=== PATIENT | female | born 1935 | race Hispanic/Latino ===

== ENCOUNTER 2017-04-04 10:43 | Day surgery (SDC) | payer MEDICARE, BC ==
[2016-10-22 13:50] VITALS: PULSE 73
[2017-03-17 12:31] VITALS: BMI 26.6
[2017-04-04] MEDS ORDERED: Sodium Chloride 0.9% 1,000 ML IV ONE (13:30)
[2017-04-04] MEDS ORDERED: Propofol 10 mg/ml Inj (20 ML) ONE (13:42)
[2017-04-04] MEDS ORDERED: HYDROmorphone 0.5 mg/0.5 ml ISec IVP PRN (14:32)
--- NOTE | 2017-04-04 14:52 | PCM.SURG1 ---
Surgeon's Initial Post Op Note - Surgeon's Notes Surgeon: Huong Araiza MD Instructor Looping: none Type of Anesthesia: General LMA Pre-Operative Diagnosis: post menopausal bleeding Operative Findings: samll uteurs sounded, no adnexal msases, no intracavity masses, thikcneed endometrium, urien outpult 50 cc clear yello wurine, bilatelr ostia visualized Post-Operative Diagnosis: same as above Operation Performed: Operative hysteroscopy, fraction dilation and curretage Specimen/Specimens Removed: endocervical currettage, endometrial currettage Estimated Blood Loss: EBL {In ML}: 5 Blood Products Given: N/A Drains Used: No Drains Post-Op Condition: Good Date of Surgery/Procedure: 04/04/17 Time of Surgery/Procedure: 13:00
[2017-04-04 16:06] VITALS: RESP 18
[2017-04-04 16:46] VITALS: BP 155/78; PULSE 72; TEMP 97.8; O2SAT 98
--- NOTE | 2017-04-05 03:17 | OP ---
PROCEDURE DATE: 04/04/2017 SURGEON: Huong Araiza MD. DETENTION SERGEANT: None. TYPE OF ANESTHESIA: General LMA. PREOPERATIVE DIAGNOSIS: Postmenopausal bleeding. POSTOPERATIVE DIAGNOSIS: Postmenopausal bleeding. OPERATIVE FINDINGS: Small uterus, sounded to 9 cm. No adnexal masses, no intracavity masses. Thickened endometrium. Bilateral ostia are visualized. URINE OUTPUT: 50 mL of clear yellow urine. OPERATION PERFORMED: Operative hysteroscopy and dilation and curettage. SPECIMEN: Endocervical curettings and endometrial curettings. ESTIMATED BLOOD LOSS: 5 mL. BLOOD PRODUCTS: None. COMPLICATIONS: None. INDICATIONS: The patient is a 81-year-old female with postmenopausal bleeding, with history of atrial fibrillation on anticoagulation, which was subsequently medically cleared. Medication was stopped 5 days prior to surgery. Risks, benefits, alternatives and indications of surgery not limited to infection, bleeding, injury or perforation were discussed with the patient. Patient agreed and consented, witnessed. The patient was taken to the operating room where she was given general anesthesia. Once found to be adequate, she was positioned on the operating table in dorsal supine position with legs supported using stirrups. The patient was then prepped and draped in the usual sterile fashion. A time-out was performed to confirm correct patient, correct procedure. A bimanual exam was performed with the above-mentioned findings. A red rubber catheter was inserted into the urethra to drain the Ruggiero. Following this, a single tooth tenaculum was placed in the anterior portion of the vagina and the cervix was adequately visualized. Single-toothed tenaculum was placed in the anterior lip of the cervix and endocervical curettings were obtained with a Kevorkian curette and sent to pathology on Tel. The uterus was then sounded to 9 cm. Then the uterus was sequentially dilated to allow for introduction of the hysteroscope. Upon visualization, the bilateral endometria were visualized and a thickened white proliferative type tissue noted within the cavity. A gentle curettage was done. Specimen was then sent to pathology on a Tel. All instruments were removed including the single tooth tenaculum with good hemostasis noted. At the end of the procedure, all needle, sponge and instrument counts were noted and correct x2. The patient tolerated the procedure well and was transferred to the recovery room in stable condition. Huong Araiza MD [facility] # [id number]
== END 2017-04-04 16:45 | disposition home or self-care (01) ==
LOC: C.SDS 10:43
PROVIDERS: ATTEND Obstetrics & Gynecology
DX: N95.0 Postmenopausal bleeding (principal); I48.91 Unspecified atrial fibrillation; Z78.0 Asymptomatic menopausal state
CPT/HCPCS: 58558; 88305; J2405; J2704; J3010; J7040; J7120

== ENCOUNTER 2018-04-03 10:17 | Inpatient (IN) | payer MEDICARE, BC ==
[2017-06-24 17:17] VITALS: BMI 26.6
[2018-04-03] MEDS ORDERED: Propofol 10 mg/ml 1,000 MG/100 ML VIAL ONE (12:48)
[2018-04-03] MEDS ORDERED: Bupivacaine Liposomal Inj 20 ml INFIL ONE (12:49)
[2018-04-03] MEDS ORDERED: Propofol 10 mg/ml Inj (20 ML) ONE (12:50)
--- NOTE | 2018-04-03 12:51 | CP.PCM.HP ---
History of Present Illness - History of Present Illness History of Present Illness: 82F with right knee DJD failed conservative mgmt and elected for TKR. PMH: CAD s/p stents 1999, HTN, afib INR 1.21 04/03/2018 cardiology clearance on chart with recent stress test PSH: right ankle Present on Admission - Present on Admission Any Indicators Present on Admission: No Review of Systems - Review of Systems All systems: reviewed and no additional remarkable complaints except - Musculoskeletal Musculoskeletal: As Per HPI Past Patient History - Infectious Disease Hx of Infectious Diseases: None - Tetanus Immunizations Tetanus Immunization: Unknown - Past Medical History & Family History Past Medical History?: Yes Past Family History: Reviewed and not pertinent - Past Social History Smoking Status: Never Smoked - CARDIAC Hx Cardiac Disorders: Yes (CAD) Hx Cardia Arrhythmia: Yes (AFIB) Hx Circulatory Problems: Yes Hx Hypercholesterolemia: Yes Hx Hypertension: Yes Hx Pacemaker: No - PULMONARY Hx Respiratory Disorders: Yes Hx Pneumonia: Yes - NEUROLOGICAL Hx Neurological Disorder: Yes Hx Dizziness: Yes - HEENT Hx HEENT Problems: Yes Hx Cataracts: Yes - RENAL Hx Chronic Kidney Disease: No - ENDOCRINE/METABOLIC Hx Endocrine Disorders: No - HEMATOLOGICAL/ONCOLOGICAL Hx Blood Disorders: No - INTEGUMENTARY Hx Dermatological Problems: No - MUSCULOSKELETAL/RHEUMATOLOGICAL Hx Musculoskeletal Disorders: Yes Hx Arthritis: Yes Hx Fractures: Yes (right tibia 1987, right ankle 2002) Hx Osteoporosis: Yes Hx Unsteady Gait: Yes (uses a cane arthritis r knee) - GASTROINTESTINAL Hx Gastrointestinal Disorders: Yes - GENITOURINARY/GYNECOLOGICAL Hx Genitourinary Disorders: Yes (PMB) - PSYCHIATRIC Hx Psychophysiologic Disorder: Yes Hx Anxiety: Yes Hx Substance Use: No - SURGICAL HISTORY Hx Surgeries: Yes Hx Cardiac Catheterization: Yes (NOVEMBER 2012) Hx Coronary Stent: Yes (x1) Hx Dilation and Curettage: Yes Hx Open Reduction Internal Fixation: Yes (RIGHT TIBIA ANKLE) - ANESTHESIA Hx Anesthesia: Yes Hx Anesthesia Reactions: Yes Hx Malignant Hyperthermia: No Meds Allergies/Adverse Reactions: Allergies Allergy/AdvReac Type Severity Reaction Status Date / Time diphenhydramine Allergy Severe unknown Verified 03/23/18 10:08 [From Benadryl] nitroglycerin Allergy Severe ANAPHYLAXIS Verified 03/23/18 10:08 pcn Allergy Severe RASH Uncoded 03/23/18 10:08 chocolate candy AdvReac Severe HEADACHE Uncoded 03/23/18 10:08 Physical Exam - Constitutional Appears: Well, No Acute Distress - Head Exam Head Exam: ATRAUMATIC - Respiratory Exam Respiratory Exam: NORMAL BREATHING PATTERN - Expanded Lower Extremities Exam Right Knee exam: tenderness (severe valgus deformity, NVID, +DP/PT pulses, calves soft NT neg homans) - Neurological Exam Neurological exam: Alert, Oriented x3 - Psychiatric Exam Psychiatric exam: Normal Affect, Normal Mood - Skin Skin Exam: Dry, Intact, Normal Color, Warm Results - Vital Signs Recent Vital Signs: Last Vital Signs Temp 97.1 F L 04/03/18 10:34 Pulse 56 L 04/03/18 10:34 Resp 20 04/03/18 10:34 BP 149/101 H 04/03/18 10:34 Pulse Ox 96 04/03/18 10:34 - Labs Labs: Laboratory Results - last 24 hr 04/03/18 11:30 Blood Type O NEGATIVE Antibody Screen Negative Assessment & Plan (1) Primary osteoarthritis of right knee Assessment and Plan: risks/arvind/alt explained in detail, patient verbalized understanding and consented to surgery NPO patient surgery moved to due to high humidity levels at [place] operating room T&S for OR Status: Chronic (2) Acquired genu valgum of right knee Status: Chronic (3) Coronary artery disease Status: Chronic (4) Vitamin D deficiency Status: Chronic (5) Atrial fibrillation Status: Chronic (6) Hypertension Assessment and Plan: cont home meds Status: Chronic
[2018-04-03] MEDS ORDERED: Phenylephrine 10 mg/ml Inj ONE (12:53)
[2018-04-03] MEDS ORDERED: Rocuronium 10 mg/ml (5 ml) ONE (12:53)
[2018-04-03] MEDS ORDERED: Bacitracin 150,000 UNIT in Sodium Chloride 0.9% Irrig 3,000 ML IR SCH (13:00)
[2018-04-03] MEDS ORDERED: Sodium Chloride 0.9% 60 ML IV ONE (13:26)
[2018-04-03] MEDS ORDERED: Neostigmine Methylsulfate 3mg/3ml Syringe IV ONE ×2 (13:35→15:25)
[2018-04-03] MEDS ORDERED: Vancomycin 1 g Inj ONE ×2 (14:55→15:03)
[2018-04-03] MEDS ORDERED: Absorbable Gelatin Sponge Size 100 ONE (15:32)
[2018-04-03] MEDS ORDERED: Thrombin Topical 5,000 Int Units Spray Kit ONE (15:32)
[2018-04-03] MEDS ORDERED: Thrombin Topical 20,000 Intl Units Spray Kit TOP ONE (15:32)
[2018-04-03] MEDS ORDERED: HYDROmorphone 0.5 mg/0.5 ml ISec IVP PRN (16:01)
[2018-04-03] MEDS ORDERED: Bupivacaine 0.25% 20 ML INJ IJ ONE (17:06)
--- NOTE | 2018-04-03 17:35 | RAD ---
Date of service: 04/03/2018 PROCEDURE: Right Knee Radiographs. HISTORY: pt in pacu, s/p TKR COMPARISON: None. FINDINGS: BONES: Status post right knee arthroplasty. The hardware are seen at appropriate position. JOINTS: Postsurgical changes noted in the joint space. JOINT EFFUSION: No evidence of significant joint effusion. OTHER FINDINGS: None. IMPRESSION: Postsurgical changes consistent with recent right knee arthroplasty.
--- NOTE | 2018-04-03 18:19 | CP.PCM.CON ---
<Caprice Pham - Last Filed: 04/03/18 19:51> History of Present Illness - History of Present Illness History of Present Illness: PGY-1 Caprice Pham D.O. Medicine Consult note for Dr. Carlos's service: Bri Marte is an 82 yo female with a history of CAD (1 stent), Afib, OA, and HTN who presents s/p Right total knee replacement. We were consulted for medical management post-op. Patient was seen and examined in the PACU. She was alert and oriented. She stated she has some pain in her right leg. She still has Ruggiero in place. She has not yet passed flatus or had a BM since surgery. Patient denies nausea and vomiting, and she has an appetite. PMH: Afib- on warfarin CAD- s/p 1 stent in 1999 HTN OA PSH: Ortho surgeries on R ankle and Tibia/fibula in Meds: ASA 81 Warfarin 4.5 mg daily (PT/INR checked at Dr. Mccracken's office) Digoxin 0.125 mg daily Atenolol 25 mg BID Simvastatin 40 mg QHS Xanax 0.25 mg daily Calium/vit D All: Benadryl, PCN, nitroglycerin, chocolate FH: not significant 2 daughters live in [place] (one in [place], Conchis in [place]) SH: Denies alcohol, tobacco, drugs Lives alone in [place] Performs own ADLs PMD: Dr. Mccracken Gen surg (primary): Dr. Love Cardio: Dr. Cuellar Review of Systems - Constitutional Constitutional: absent: Chills, Fever, Headache, Weakness - EENT Eyes: absent: Blurred Vision, Change in Vision, Diplopia Ears: absent: Tinnitus, Dizziness Nose/Mouth/Throat: absent: Nasal Congestion, Dry Mouth, Sore Throat - Cardiovascular Cardiovascular: absent: Chest Pain, Diaphoresis, Dyspnea, Irregular Heart Rhythm , Lightheadedness, Pedal Edema, Rapid Heart Rate - Respiratory Respiratory: absent: Cough, Dyspnea, Wheezing, Chest Congestion - Gastrointestinal Gastrointestinal: absent: Abdominal Pain, Constipation, Diarrhea, Nausea, Vomiting - Genitourinary Genitourinary: absent: Difficulty Urinating, Dysuria, Hematuria, Urinary Frequency - Reproductive: Female Reproductive:Female: Post Menopausal - Menstruation Menstruation: Post Menopausal - Musculoskeletal Musculoskeletal: Arthralgias (R knee). absent: Numbness, Tingling - Integumentary Integumentary: Unusual Bruising (under L eye (pt reports happened after Lovenox injection), has not increased in size). absent: Lesions, Sores - Neurological Neurological: absent: Behavioral Changes, Dizziness, Numbness, Loss of Vision, Memory Loss, Weakness - Psychiatric Psychiatric: absent: Anxiety, Behavioral Changes, Depression - Endocrine Endocrine: absent: Excessive Sweating, Fatigue, Palpitations - Hematologic/Lymphatic Hematologic: absent: Easy Bleeding, Easy Bruising, Lymphadenopathy Past Patient History - Infectious Disease Hx of Infectious Diseases: None - Tetanus Immunizations Tetanus Immunization: Unknown - Past Medical History & Family History Past Medical History?: Yes Past Family History: Reviewed and not pertinent - Past Social History Smoking Status: Never Smoked Chewing Tobacco Use: No Cigar Use: No Alcohol: None Drugs: Denies Home Situation {Lives}: Alone - CARDIAC Hx Cardiac Disorders: Yes (CAD) Hx Cardia Arrhythmia: Yes (AFIB) Hx Circulatory Problems: Yes Hx Hypercholesterolemia: Yes Hx Hypertension: Yes Hx Pacemaker: No - PULMONARY Hx Respiratory Disorders: Yes Hx Pneumonia: Yes - NEUROLOGICAL Hx Neurological Disorder: Yes Hx Dizziness: Yes - HEENT Hx HEENT Problems: Yes Hx Cataracts: Yes - RENAL Hx Chronic Kidney Disease: No - ENDOCRINE/METABOLIC Hx Endocrine Disorders: No - HEMATOLOGICAL/ONCOLOGICAL Hx Blood Disorders: No - INTEGUMENTARY Hx Dermatological Problems: No - MUSCULOSKELETAL/RHEUMATOLOGICAL Hx Musculoskeletal Disorders: Yes Hx Arthritis: Yes Hx Fractures: Yes (right tibia 1987, right ankle 2002) Hx Osteoporosis: Yes Hx Unsteady Gait: Yes (uses a cane arthritis r knee) - GASTROINTESTINAL Hx Gastrointestinal Disorders: Yes - GENITOURINARY/GYNECOLOGICAL Hx Genitourinary Disorders: Yes (PMB) - PSYCHIATRIC Hx Psychophysiologic Disorder: Yes Hx Anxiety: Yes Hx Substance Use: No - SURGICAL HISTORY Hx Surgeries: Yes Hx Cardiac Catheterization: Yes (NOVEMBER 2012) Hx Coronary Stent: Yes (x1) Hx Dilation and Curettage: Yes Hx Open Reduction Internal Fixation: Yes (RIGHT TIBIA ANKLE) - ANESTHESIA Hx Anesthesia: Yes Hx Anesthesia Reactions: Yes Hx Malignant Hyperthermia: No Meds Allergies/Adverse Reactions: Allergies Allergy/AdvReac Type Severity Reaction Status Date / Time diphenhydramine Allergy Severe unknown Verified 03/23/18 10:08 [From Benadryl] nitroglycerin Allergy Severe ANAPHYLAXIS Verified 03/23/18 10:08 pcn Allergy Severe RASH Uncoded 03/23/18 10:08 chocolate candy AdvReac Severe HEADACHE Uncoded 03/23/18 10:08 - Medications Medications: Current Medications Acetaminophen (Tylenol 325mg Tab) 650 mg PO Q6 [facility] Aspirin (Ecotrin) 81 mg PO DAILY [facility] Atenolol (Tenormin) 25 mg PO BID [facility] Digoxin (Digoxin) 0.125 mg PO DAILY [facility] Docusate Sodium (Colace) 100 mg PO BID [facility] Enoxaparin Sodium (Lovenox) 30 mg SC Q24H [facility] Ergocalciferol (Drisdol 50,000 Intl Units Cap) 1 cap PO Q7D [facility] Sodium Chloride (Sodium Chloride 0.9%) 1,000 mls @ 60 mls/hr IV .[id number] [facility] Morphine Sulfate (Morphine) 2 mg IVP Q4H PRN PRN Reason: Pain, severe (8-10) Oxycodone HCl (Oxycodone Immediate Release Tab) 5 mg PO Q4H PRN PRN Reason: Pain, moderate (4-7) Rosuvastatin Calcium (Crestor) 10 mg PO HS [facility] Warfarin Sodium (Coumadin) 4.5 mg PO 1800 [facility] Stop: 04/06/18 18:01 Physical Exam - Constitutional Appears: Well, No Acute Distress - Head Exam Head Exam: ATRAUMATIC, NORMAL INSPECTION, NORMOCEPHALIC - Eye Exam Eye Exam: EOMI, Normal appearance, PERRL Additional comments: 2 cm ecchymosis below inferiomedial Left eye - ENT Exam ENT Exam: Mucous Membranes Moist, Normal Exam - Neck Exam Neck exam: Positive for: Normal Inspection. Negative for: Lymphadenopathy - Respiratory Exam Respiratory Exam: Clear to Auscultation Bilateral, NORMAL BREATHING PATTERN - Cardiovascular Exam Cardiovascular Exam: REGULAR RHYTHM, +S1, +S2 - GI/Abdominal Exam GI & Abdominal Exam: Normal Bowel Sounds, Soft - Rectal Exam Rectal Exam: Deferred - Exam Additional comments: Ruggiero in place - Extremities Exam Extremities exam: Positive for: normal capillary refill, normal inspection, pedal pulses present. Negative for: pedal edema Additional comments: R leg bandaged and splinted post-op TKR Results - Vital Signs Recent Vital Signs: Last Vital Signs Temp 97.9 F 04/03/18 16:50 Pulse 65 04/03/18 17:30 Resp 14 04/03/18 17:30 BP 108/56 L 04/03/18 17:30 Pulse Ox 99 04/03/18 17:30 - Labs Labs: Laboratory Results - last 24 hr 04/03/18 11:30 Blood Type O NEGATIVE Antibody Screen Negative Assessment & Plan - Assessment and Plan (Free Text) Assessment: Patient is an 82 yo female with a history of Afib, CAD, HTN, and OA who presents s/p Right TKR. Medicine was consulted to manage Afib and CAD. Plan: OA- s/p Right total knee replacement - Management by ortho team (Dr. Love) - Tylenol 650 mg PO q6hrs PRN - Oxycodone 5 mg PO q4hrs PRN - Morphine 2 mg IV q4hrs PRN - Calcium/vit D 1x/wk Atrial fibrillation- pt currently in NSR, HR 60s - Monitor on telemetry - Continue home digoxin 0.125 mg PO daily- monitor dig level tomorrow AM - Continue home Atenolol 25 mg PO BID - Patient on warfarin 4.5 mg at home- currently held, scheduled to start tomorrow 04/04 at 6 PM - Lovenox 30 mg SC daily- warfarin bridge - Monitor PT/INR - Cardiology consulted (Dr. Munson) CAD s/p 1 stent in 1999 - Continue home ASA 81 - Continue home Atenolol 25 mg PO BID - Continue statin- Crestor 10 mg PO WHS - Cardiology consulted (Dr. Munson) Essential HTN. chronic, stable - Vitals q4hrs - Continue home Atenolol 25 mg PO BID IVF: NS @ 60 mL Diet: regular VTE ppx: Lovenox 30 SC, will resume warfarin tomorrow 04/04 at 6 PM GI ppx: Colace 100 mg BID Code status: full code <Antonietta Carlos V - Last Filed: 04/03/18 21:22> Meds - Medications Medications: Current Medications Acetaminophen (Tylenol 325mg Tab) 650 mg PO Q6 [facility] Aspirin (Ecotrin) 81 mg PO DAILY [facility] Atenolol (Tenormin) 25 mg PO BID [facility] Last Admin: 04/03/18 19:28 Dose: 25 mg Digoxin (Digoxin) 0.125 mg PO DAILY [facility] Docusate Sodium (Colace) 100 mg PO BID [facility] Last Admin: 04/03/18 19:28 Dose: 100 mg Enoxaparin Sodium (Lovenox) 30 mg SC Q24H [facility] Ergocalciferol (Drisdol 50,000 Intl Units Cap) 1 cap PO Q7D [facility] Sodium Chloride (Sodium Chloride 0.9%) 1,000 mls @ 60 mls/hr IV .[id number] [facility] Morphine Sulfate (Morphine) 2 mg IVP Q4H PRN PRN Reason: Pain, severe (8-10) Oxycodone HCl (Oxycodone Immediate Release Tab) 5 mg PO Q4H PRN PRN Reason: Pain, moderate (4-7) Rosuvastatin Calcium (Crestor) 10 mg PO HS [facility] Warfarin Sodium (Coumadin) 4.5 mg PO 1800 [facility] Stop: 04/06/18 18:01 Results - Vital Signs Recent Vital Signs: Last Vital Signs Temp 97.5 F L 04/03/18 19:30 Pulse 65 04/03/18 20:28 Resp 18 04/03/18 19:30 BP 113/64 04/03/18 19:30 Pulse Ox 96 04/03/18 19:30 - Labs Labs: Laboratory Results - last 24 hr 04/03/18 11:30 Blood Type O NEGATIVE Antibody Screen Negative Attending/Attestation - Attestation I have personally seen and examined this patient.: Yes I have fully participated in the care of the patient.: Yes I have reviewed all pertinent clinical information: Yes Notes (Text): Medicine on consult for after care s/p total right knee replacement postoperative day one. Patient with known medical history of atrial fibrillation (stopped Coumadin on Monday prior to monday, taking Lovenox 30mg subq12 at home; last dose day prior to surgery), cad (stent placed in 1999), and history of hypertension (on beta nora) who comes in after longstanding degenerative joint disease affecting her right knee and ultimately underwent s/p Right total knee replacement with orthopedic. Patient reports sensation over the right foot. Patient's right knee in dressing, knee immobilizer, hemovac in place. Ruggiero in place. Patient eating dinner at bedside. I spoke with patient as well as her daughter Conchis at bedside. Patient noted on physical exa, prior ecchymose over tear duct over left eye which she attributes to lovenox injection shots prior to OR today. Assessment/Plan 1) Degenerative Joint Disease Right Knee Pain Aftercare s/p Right total knee replacement Assessment/Plan * Preoperative/intraoperative/postoperative management per orthopedic * Restart anticoagulation per orthopedic * Note patient to be transition back to Coumadin when ortho allows given hx of atrial fibrillation * Pain management per ortho * Patient has nerve block and general anesthesia * Pain PRN: * Tylenol 650 mg PO q6hrs PRN * Oxycodone 5 mg PO q4hrs PRN * Morphine 2 mg IV q4hrs PRN 2) History of Known Atrial fibrillation- pt currently in NSR, HR 60s Assessment/Plan * Continue Atenolol 25mg PO BID * Patient has been off coumadin prior to surgery (INR: 1.21) * Ortho plans to restart DVT ppx Lovenox and bridge to Coumadin * Consult Dr. Munson who covers Dr. Cuellar, primary sliver cutter since he does not come to [facility]; discussed case since patient will not be on therapuetic lovenox since will be postoperative day 1 tomorrow * Daily INR * Patient reports goal at home: 2.5 for her * Digoxin level in AM * Cardiology (Dr. Munson) on consult to cover patient's private sliver cutter (Dr. Cuellar) 3) CAD s/p 1 stent in 1999 Assessment/Plan * Aspirin restarted per orthopedic * c/w Atenolol 25 mg PO BID * c/w Crestor 10 mg PO WHS * Cardiology consulted (Dr. Munson) to cover for patient's sliver cutter who does not come to [facility] * check lipid panel, hgba1c in AM 4) Essential HTN Assessment/Plan * Atenolol 25mg PO BID * monitor vital signs 5) Vitamin D Deficiency Assessment/Plan * Check vitamin D in level * Vitamin D 50,000 IU once a week 6)Prophylactic measure * NS 60cc/hr * Lovenox 30mg sub24 to start 1PM tomorrow * Coumadin 4.5mg PO to start 6PM * colace 100mg PO BID * PMD: Mccracken
--- NOTE | 2018-04-03 19:06 | CP.PCM.CON ---
Past Patient History - Infectious Disease Hx of Infectious Diseases: None - Tetanus Immunizations Tetanus Immunization: Unknown - Past Medical History & Family History Past Medical History?: Yes Past Family History: Reviewed and not pertinent - Past Social History Smoking Status: Never Smoked - CARDIAC Hx Cardiac Disorders: Yes (CAD) Hx Cardia Arrhythmia: Yes (AFIB) Hx Circulatory Problems: Yes Hx Hypercholesterolemia: Yes Hx Hypertension: Yes Hx Pacemaker: No - PULMONARY Hx Respiratory Disorders: Yes Hx Pneumonia: Yes - NEUROLOGICAL Hx Neurological Disorder: Yes Hx Dizziness: Yes - HEENT Hx HEENT Problems: Yes Hx Cataracts: Yes - RENAL Hx Chronic Kidney Disease: No - ENDOCRINE/METABOLIC Hx Endocrine Disorders: No - HEMATOLOGICAL/ONCOLOGICAL Hx Blood Disorders: No - INTEGUMENTARY Hx Dermatological Problems: No - MUSCULOSKELETAL/RHEUMATOLOGICAL Hx Musculoskeletal Disorders: Yes Hx Arthritis: Yes Hx Fractures: Yes (right tibia 1987, right ankle 2002) Hx Osteoporosis: Yes Hx Unsteady Gait: Yes (uses a cane arthritis r knee) - GASTROINTESTINAL Hx Gastrointestinal Disorders: Yes - GENITOURINARY/GYNECOLOGICAL Hx Genitourinary Disorders: Yes (PMB) - PSYCHIATRIC Hx Psychophysiologic Disorder: Yes Hx Anxiety: Yes Hx Substance Use: No - SURGICAL HISTORY Hx Surgeries: Yes Hx Cardiac Catheterization: Yes (NOVEMBER 2012) Hx Coronary Stent: Yes (x1) Hx Dilation and Curettage: Yes Hx Open Reduction Internal Fixation: Yes (RIGHT TIBIA ANKLE) - ANESTHESIA Hx Anesthesia: Yes Hx Anesthesia Reactions: Yes Hx Malignant Hyperthermia: No Meds Allergies/Adverse Reactions: Allergies Allergy/AdvReac Type Severity Reaction Status Date / Time diphenhydramine Allergy Severe unknown Verified 03/23/18 10:08 [From Benadryl] nitroglycerin Allergy Severe ANAPHYLAXIS Verified 03/23/18 10:08 pcn Allergy Severe RASH Uncoded 03/23/18 10:08 chocolate candy AdvReac Severe HEADACHE Uncoded 03/23/18 10:08 - Medications Medications: Current Medications Acetaminophen (Tylenol 325mg Tab) 650 mg PO Q6 [facility] Aspirin (Ecotrin) 81 mg PO DAILY [facility] Atenolol (Tenormin) 25 mg PO BID [facility] Digoxin (Digoxin) 0.125 mg PO DAILY [facility] Docusate Sodium (Colace) 100 mg PO BID [facility] Enoxaparin Sodium (Lovenox) 30 mg SC Q24H [facility] Ergocalciferol (Drisdol 50,000 Intl Units Cap) 1 cap PO Q7D [facility] Sodium Chloride (Sodium Chloride 0.9%) 1,000 mls @ 60 mls/hr IV .[id number] [facility] Morphine Sulfate (Morphine) 2 mg IVP Q4H PRN PRN Reason: Pain, severe (8-10) Oxycodone HCl (Oxycodone Immediate Release Tab) 5 mg PO Q4H PRN PRN Reason: Pain, moderate (4-7) Rosuvastatin Calcium (Crestor) 10 mg PO HS [facility] Warfarin Sodium (Coumadin) 4.5 mg PO 1800 [facility] Stop: 04/06/18 18:01 Results - Vital Signs Recent Vital Signs: Last Vital Signs Temp 97.9 F 04/03/18 16:50 Pulse 62 04/03/18 18:15 Resp 14 04/03/18 18:15 BP 118/53 L 04/03/18 18:15 Pulse Ox 96 04/03/18 18:15 - Labs Labs: Laboratory Results - last 24 hr 04/03/18 11:30 Blood Type O NEGATIVE Antibody Screen Negative
--- NOTE | 2018-04-04 03:55 | OP ---
Copied To: Taiwo Love MD Attending MD: Taiwo Love MD PROCEDURE DATE: 04/03/2018 PREOPERATIVE DIAGNOSIS: Right tricompartmental degenerative joint disease. POSTOPERATIVE DIAGNOSIS: Right tricompartmental degenerative joint disease. PROCEDURE: Right total knee arthroplasty. SURGEON: Taiwo Love MD ASSISTANTS: Yajaira Coe, physician nursing assistants teacher and Mini Cordova, physician nursing assistants teacher. Both Mackenziezay and Art were present throughout the entire case and assisted in the patient positioning, retraction and wound closure. ANESTHESIA: General. COMPLICATIONS: None. ESTIMATED BLOOD LOSS: 100 mL. IMPLANT: Biomet SSK total knee. INDICATIONS FOR PROCEDURE: This is an 82-year-old female with longstanding right knee pain and deformity. Clinical examination was consistent with a fixed valgus deformity of the right knee, medial and lateral joint line tenderness, pain with patellofemoral joint. Radiographic examination with advanced degenerative joint disease with valgus and malalignment. Recommendation was right total knee arthroplasty. The risks, benefits, and alternatives of the procedure were discussed with the patient including the possibility of nerve damage, and the informed consent was obtained. OPERATIVE PROCEDURE: After surgical site was finally verified in the perioperative holding area, the patient was taken to the operating room, placed in supine on the operating room table. After administration of general anesthesia, the patient received 900 mg of clindamycin IV. Ruggiero catheter was inserted. Tourniquet was placed about the right thigh. Venodyne boot was placed on the nonoperative extremity. Care was taken to make sure that all bony prominences and nerves were well padded and protected, and the right lower extremity was prepped and draped in the usual sterile fashion. Right lower extremity was exsanguinated with an Esmarch, and the tourniquet was inflated. Approximately 10-cm longitudinal midline incision was. Soft tissues were dissected sharply down to the knee joint. Medial parapatellar arthrotomy was performed. The medial and lateral menisci of the anterior fat pad, ACL and PCL were all resected. Once the knee joint was adequately exposed, the step drill was used to drill into the medullary canal of the distal femur. At this point, intramedullary distal femoral cutting guide was inserted and pinned into place. Distal femoral resection was then performed. Prior to proceeding, a lateral soft tissue was release was performed. Due to the fact that the patient was contracted and tight laterally, a decision was made to insert an constraint component. At this point, a femoral component was sized and 4-in-1 cut block was pinned into place. Anterior and posterior cuts were performed. Next, a box cut was performed on her distal femur, and attention was directed to the tibia. Intramedullary tibial guide was inserted, and the tibial resection guide was pinned into place. Tibial resection was then performed, and the flexion and extension gaps were checked. After performing lateral release, the patient was noted to have full extension and flexion and balance with varus and valgus stress. At this point, being careful to maintain proper rotation, the tibial plate was sized. The medullary canal of the proximal tibia and the distal femur was then reamed to allow for 16 x 80 tibial stem and 18 x 120 femoral stem. At this point, with a trial tibia, trial femur, and trial bearing were inserted. The knee was taken through range of motion and was noted to be stable with full extension and flexion. Our attention was then directed to the patella. Thickness of the patella was measured, and a patellar resection was performed. Patellar button was sized and the holes for our patella were then drilled. Trial patella was then inserted. The knee was taken through range of motion. The patient was noted to have some lateral tracking, and this was corrected by performing a lateral retinacular release. At this point, all the trial components were removed, and the knee joint was pulse lavaged with antibiotic saline solution. The bony surfaces were then dried. The actual tibial, femoral, and patellar components were cemented into place. Care was taken to remove any excess cement. Once the cement was hardened, the wound was inspected for any debris, and the wound was irrigated. Tourniquet was deflated and any obvious bleeding was cauterized. At this point, the actual bearing was inserted and locked into place with a cross pin. A medium Hemovac drain was inserted, and the arthrotomy was closed using #1 Vicryl suture. Subcutaneous tissue was closed using 0 Vicryl and 2-0 Vicryl sutures, and the skin was closed using boston. A CHRISTELLE incisional wound VAC dressing was applied, and a knee immobilizer was placed. The patient was awakened from the procedure, taken to the recovery room in stable condition. Taiwo Love MD
[2018-04-04] MEDS: Sodium Chloride 0.9% 1,000 ML IV SCH ×2 (06:00→08:39)
--- NOTE | 2018-04-04 06:52 | CP.PCM.PN ---
Subjective - Date & Time of Evaluation Date of Evaluation: 04/04/18 Time of Evaluation: 09:20 - Subjective Subjective: PGY-1 Caprice Pham D.O. Medicine Consult note for Dr. Arellano's service: Patient is seen and examined this morning. She is working with PT to transfer from bed to chair. Patient is complaining of nausea. She is also complaining of leg pain, which is expected, but it is relieved with pain meds. Patient has not yet urinated since Ruggiero removed. She has passed gas but has not yet had a BM post-op. She is able to tolerate a regular diet. Objective - Vital Signs/Intake and Output Vital Signs (last 24 hours): Temp Pulse Resp BP Pulse Ox 97.6 F 71 20 105/56 L 95 04/04/18 04:00 04/04/18 04:00 04/04/18 04:00 04/04/18 04:00 04/04/18 04:00 Intake and Output: 04/03/18 04/04/18 18:59 06:59 Intake Total 1256 Output Total 400 Balance 856 - Medications Medications: Current Medications Acetaminophen (Tylenol 325mg Tab) 650 mg PO Q6 [facility] Aspirin (Ecotrin) 81 mg PO DAILY [facility] Atenolol (Tenormin) 25 mg PO BID [facility] Last Admin: 04/03/18 19:28 Dose: 25 mg Digoxin (Digoxin) 0.125 mg PO DAILY [facility] Docusate Sodium (Colace) 100 mg PO BID [facility] Last Admin: 04/03/18 19:28 Dose: 100 mg Enoxaparin Sodium (Lovenox) 30 mg SC Q24H [facility] Ergocalciferol (Drisdol 50,000 Intl Units Cap) 1 cap PO Q7D [facility] Sodium Chloride (Sodium Chloride 0.9%) 1,000 mls @ 60 mls/hr IV .[id number] [facility] Morphine Sulfate (Morphine) 2 mg IVP Q4H PRN PRN Reason: Pain, severe (8-10) Last Admin: 04/04/18 00:49 Dose: 2 mg Oxycodone HCl (Oxycodone Immediate Release Tab) 5 mg PO Q4H PRN PRN Reason: Pain, moderate (4-7) Rosuvastatin Calcium (Crestor) 10 mg PO HS [facility] Last Admin: 04/03/18 21:53 Dose: 10 mg Warfarin Sodium (Coumadin) 4.5 mg PO 1800 BOO Stop: 04/06/18 18:01 - Constitutional Appears: Well, No Acute Distress - Head Exam Head Exam: ATRAUMATIC, NORMAL INSPECTION, NORMOCEPHALIC - Eye Exam Eye Exam: EOMI, Normal appearance Additional comments: 2 cm ecchymosis below inferiomedial Left eye- improved from yesterday - ENT Exam ENT Exam: Mucous Membranes Moist, Normal Exam - Neck Exam Neck Exam: Normal Inspection - Respiratory Exam Respiratory Exam: Clear to Ausculation Bilateral, NORMAL BREATHING PATTERN - Cardiovascular Exam Cardiovascular Exam: REGULAR RHYTHM, +S1, +S2 - GI/Abdominal Exam GI & Abdominal Exam: Soft, Normal Bowel Sounds - Rectal Exam Rectal Exam: Deferred - Extremities Exam Extremities Exam: Normal Capillary Refill Additional comments: R leg bandaged and splinted post-op TKR - Back Exam Back Exam: NORMAL INSPECTION - Neurological Exam Neurological Exam: Alert, Awake, Oriented x3 - Psychiatric Exam Psychiatric exam: Normal Affect, Normal Mood - Skin Skin Exam: Dry, Intact, Normal Color, Warm Assessment and Plan - Assessment and Plan (Free Text) Assessment: Patient is an 82 yo female with a history of Afib, CAD, HTN, and OA who presents s/p Right TKR. Medicine was consulted to manage Afib and CAD. Plan: OA- s/p Right total knee replacement, POD1 - Management by ortho team (Dr. Love) - Lyrica 50 mg PO BID - Tylenol 650 mg PO q6hrs PRN - Oxycodone 5 mg PO q4hrs PRN - Morphine 2 mg IV q4hrs PRN Atrial fibrillation- pt currently in NSR, HR 60s, INR this morning 04/04 1.3 - Monitor on telemetry- no events overnight - Continue home digoxin 0.125 mg PO daily- dig level 0.8 this morning 04/04 - Continue home Atenolol 25 mg PO BID - Patient on warfarin 4.5 mg at home- currently held, scheduled to start today 04/04 at 6 PM - Lovenox 30 mg SC daily- warfarin bridge - Monitor PT/INR- 14.7/1.3 this morning 04/04 - Cardiology consulted (Dr. Munson)- continue current management CAD s/p 1 stent in 1999 - Continue home ASA 81 - Continue home Atenolol 25 mg PO BID - Continue statin- Crestor 10 mg PO QHS - Cardiology consulted (Dr. Munson) Essential HTN, chronic, stable - Vitals q4hrs - Continue home Atenolol 25 mg PO BID Vitamin D deficiency, chronic- current level 19.9 - Continue home calcium/vit D 1x/wk IVF: NS @ 60 mL Diet: heart healthy VTE ppx: Lovenox 30 SC, will resume warfarin today 04/04 at 6 PM GI ppx: Colace 100 mg BID, Senokote 8.6 mg PO daily PRN Code status: full code
[2018-04-04 08:11] LABS: HEMOGLOBIN 9.9 g/dL (11.0-16.0); MEAN CORPUSCULAR HEMOGLOBIN 28.8 pg (27.0-31.0); MEAN PLATELET VOLUME 9.3 fL (7.2-11.7); RBC 3.45 Mil/uL (3.80-5.20); RED CELL DISTRIBUTION WIDTH 16.5 % (11.5-14.5); WHITE BLOOD COUNT 11.7 K/uL (4.8-10.8)
[2018-04-04 08:19] LABS: INR 1.3; PROTHROMBIN TIME 14.7 SECONDS (9.7-12.2)
[2018-04-04 08:42] LABS: ALB/GLOB RATIO 1.3 (1.0-2.1); ALBUMIN 3.1 g/dL (3.5-5.0); ALT/SGPT 32 U/L (9-52); AST/SGOT 17 U/L (14-36); BLOOD UREA NITROGEN 19 mg/dL (7-17); CALCIUM 8.2 mg/dl (8.6-10.4); GFR AFRICAN-AMERICAN > 60; GFR NON-AFRICAN AMERICAN > 60; HDL CHOLESTEROL 29 mg/dL (30-70)
[2018-04-04 08:53] LABS: LDL CHOLESTEROL 54 mg/dL (0-129)
[2018-04-04] MEDS: Digoxin 125 mcg (0.125 mg) Tab PO SCH (09:34)
[2018-04-04] MEDS: Enoxaparin 40 mg Syringe SC SCH (09:35)
[2018-04-04] MEDS ORDERED: Ergocalciferol 50,000 Intl Units Cap PO SCH (10:00)
--- NOTE | 2018-04-04 10:56 | CP.PCM.PN ---
<Karen Rae - Last Filed: 04/04/18 18:00> Subjective - Date & Time of Evaluation Date of Evaluation: 04/04/18 Time of Evaluation: 10:55 - Subjective Subjective: Cardiology Progress Note - Dr Munson Patient seen and examined at bedside. Per nursing no acute events overnight. Patient is doing well, oob to chair. Reports some nausea, denies vomiting. Admits to constipation, last bowel movement was 3 days ago. Denies chest pain or dyspnea. Objective - Vital Signs/Intake and Output Vital Signs (last 24 hours): Temp Pulse Resp BP Pulse Ox 97.8 F 72 20 101/57 L 96 04/04/18 07:00 04/04/18 09:30 04/04/18 07:00 04/04/18 09:30 04/04/18 07:00 Intake and Output: 04/04/18 04/04/18 06:59 18:59 Intake Total 680 Output Total 1050 Balance -370 - Medications Medications: Current Medications Acetaminophen (Tylenol 325mg Tab) 650 mg PO Q6 PRN PRN Reason: Fever >100.4 F Aspirin (Ecotrin) 81 mg PO DAILY [facility] Last Admin: 04/04/18 09:34 Dose: 81 mg Atenolol (Tenormin) 25 mg PO BID [facility] Last Admin: 04/04/18 09:34 Dose: 25 mg Digoxin (Digoxin) 0.125 mg PO DAILY [facility] Last Admin: 04/04/18 09:34 Dose: 0.125 mg Docusate Sodium (Colace) 100 mg PO BID [facility] Last Admin: 04/04/18 09:34 Dose: 100 mg Enoxaparin Sodium (Lovenox) 40 mg SC DAILY [facility] Last Admin: 04/04/18 09:35 Dose: 40 mg Ergocalciferol (Drisdol 50,000 Intl Units Cap) 1 cap PO Q7D [facility] Last Admin: 04/04/18 09:33 Dose: 1 cap Sodium Chloride (Sodium Chloride 0.9%) 1,000 mls @ 60 mls/hr IV .[id number] [facility] Last Admin: 04/04/18 08:39 Dose: Not Given Morphine Sulfate (Morphine) 2 mg IVP Q4H PRN PRN Reason: Pain, severe (8-10) Last Admin: 04/04/18 07:04 Dose: 2 mg Oxycodone HCl (Oxycodone Immediate Release Tab) 5 mg PO Q4H PRN PRN Reason: Pain, moderate (4-7) Pregabalin (Lyrica) 50 mg PO BID [facility] Last Admin: 04/04/18 09:36 Dose: Not Given Rosuvastatin Calcium (Crestor) 10 mg PO HS [facility] Last Admin: 04/03/18 21:53 Dose: 10 mg Sennosides (Senokot Tab) 8.6 mg PO DAILY PRN PRN Reason: Constipation Warfarin Sodium (Coumadin) 2 mg PO 1800 ONE Stop: 04/04/18 18:01 Warfarin Sodium (Coumadin) 2.5 mg PO DAILY@1800 ONE Stop: 04/04/18 18:01 - Labs Labs: 04/04/18 08:02 04/04/18 08:02 PT 14.7 SECONDS (9.7-12.2) H 04/04/18 08:02 INR 1.3 04/04/18 08:02 - Constitutional Appears: Non-toxic, No Acute Distress - Head Exam Head Exam: ATRAUMATIC, NORMAL INSPECTION, NORMOCEPHALIC - Eye Exam Eye Exam: EOMI, Normal appearance - ENT Exam ENT Exam: Mucous Membranes Moist - Neck Exam Neck Exam: Full ROM - Respiratory Exam Respiratory Exam: Clear to Ausculation Bilateral, NORMAL BREATHING PATTERN. absent: Rales, Rhonchi, Wheezes - Cardiovascular Exam Cardiovascular Exam: Irregular Rhythm, +S1, +S2 - GI/Abdominal Exam GI & Abdominal Exam: Soft. absent: Guarding, Rigid, Tenderness - Extremities Exam Additional comments: +pedal pulses bilaterally - Neurological Exam Neurological Exam: Alert, Awake, Oriented x3 - Psychiatric Exam Psychiatric exam: Normal Affect, Normal Mood - Skin Skin Exam: Dry, Normal Color, Warm Assessment and Plan - Assessment and Plan (Free Text) Assessment: A/P: Patient is a 82 year old female with a history of CAD s/p 1 stent, Afib, OA , and HTN who presents s/p Right total knee replacement Atrial fibrillation -Stable, afebrile -Monitor on telemetry -EKG on 03/23 showed atrial fibrillation with premature ventricular or aberrantly conducted complexes -Digoxin level 0.8 -Continue Atenolol 25mg PO BID, Digoxin 0.125mg PO daily -Last Stress test is 2015 showed fixed anterior defect likely due to breast attenuation, no change from prior study in 2015 Subtherapeutic INR -INR today 1.3 -Goal 2.0-3.0 -Continue Coumadin and Lovenox S/P Right total knee replacement -Management per ortho -Physical therapy/occupational therapy HTN -Continue medications Vitamin D Deficiency -Vitamin D 19.9 -Continue supplementation Constipation -Continue Colace and ducolax -Monitor bowel function Plan discussed with Dr Arpit Rae DO PGY-2 <Jayjay Munson - Last Filed: 04/05/18 22:40> Objective - Vital Signs/Intake and Output Vital Signs (last 24 hours): Temp Pulse Resp BP Pulse Ox 97.6 F 68 20 140/77 96 04/05/18 15:00 04/05/18 15:00 04/05/18 15:00 04/05/18 15:00 04/05/18 15:00 Intake and Output: 04/05/18 04/06/18 18:59 06:59 Intake Total 1200 Output Total 0 150 Balance 1200 -150 - Medications Medications: Current Medications Acetaminophen (Tylenol 325mg Tab) 650 mg PO Q6 PRN PRN Reason: Fever >100.4 F Aspirin (Ecotrin) 81 mg PO DAILY [facility] Last Admin: 04/05/18 10:22 Dose: 81 mg Atenolol (Tenormin) 25 mg PO BID [facility] Last Admin: 04/05/18 18:43 Dose: 25 mg Digoxin (Digoxin) 0.125 mg PO DAILY [facility] Last Admin: 04/05/18 10:22 Dose: 0.125 mg Docusate Sodium (Colace) 100 mg PO BID [facility] Last Admin: 04/05/18 18:40 Dose: 100 mg Enoxaparin Sodium (Lovenox) 40 mg SC DAILY [facility] Last Admin: 04/05/18 10:20 Dose: 40 mg Ergocalciferol (Drisdol 50,000 Intl Units Cap) 1 cap PO Q7D [facility] Last Admin: 04/04/18 09:33 Dose: 1 cap Famotidine (Pepcid) 20 mg PO BID [facility] Last Admin: 04/05/18 18:40 Dose: 20 mg Sodium Chloride (Sodium Chloride 0.9%) 1,000 mls @ 60 mls/hr IV .[id number] [facility] Last Admin: 04/05/18 16:30 Dose: 60 mls/hr Morphine Sulfate (Morphine) 2 mg IVP Q4H PRN PRN Reason: Pain, severe (8-10) Last Admin: 04/05/18 08:43 Dose: 2 mg Oxycodone HCl (Oxycodone Immediate Release Tab) 5 mg PO Q4H PRN PRN Reason: Pain, moderate (4-7) Last Admin: 04/05/18 10:22 Dose: 5 mg Pregabalin (Lyrica) 50 mg PO BID BOO Last Admin: 04/05/18 18:41 Dose: Not Given Rosuvastatin Calcium (Crestor) 10 mg PO HS [facility] Last Admin: 04/05/18 21:41 Dose: 10 mg Sennosides (Senokot Tab) 8.6 mg PO DAILY PRN PRN Reason: Constipation - Labs Labs: 04/05/18 06:13 04/05/18 06:13 PT 15.4 SECONDS (9.7-12.2) H 04/05/18 06:13 INR 1.4 04/05/18 06:13 Assessment and Plan - Assessment and Plan (Free Text) Assessment: Patient seen and evaluated personally by mt Plan of care d/w the resident and as documented
[2018-04-04] MEDS: oxyCODONE 5 mg Immediate Release Tab PO PRN ×2 (14:06→21:48)
[2018-04-05] MEDS: oxyCODONE 5 mg Immediate Release Tab PO PRN ×2 (01:59→10:22)
[2018-04-05 06:23] LABS: BASO % 0.2 % (0.0-2.0); EOS % 0.3 % (0.0-4.0); HEMOGLOBIN 8.6 g/dL (11.0-16.0); LYMPH # 1.9 K/uL (1.0-4.3); LYMPH % 18.2 % (20.0-40.0); MEAN CELL VOLUME 84.3 fL (81.0-99.0); MEAN CORPUSCULAR HEMOGLOBIN 29.3 pg (27.0-31.0); MEAN CORPUSCULAR HGB CONC 34.7 g/dL (33.0-37.0); MEAN PLATELET VOLUME 9.3 fL (7.2-11.7); MONO # 1.7 K/uL (0.0-0.8); MONO % 15.4 % (0.0-10.0); NEUT # 7.1 K/uL (1.8-7.0); NEUT % 65.9 % (50.0-75.0); RBC 2.94 Mil/uL (3.80-5.20); RED CELL DISTRIBUTION WIDTH 16.1 % (11.5-14.5); WHITE BLOOD COUNT 10.7 K/uL (4.8-10.8)
[2018-04-05 06:27] LABS: INR 1.4; PROTHROMBIN TIME 15.4 SECONDS (9.7-12.2)
[2018-04-05 06:51] LABS: ALB/GLOB RATIO 1.2 (1.0-2.1); ALBUMIN 2.9 g/dL (3.5-5.0); ALT/SGPT 25 U/L (9-52); AST/SGOT 17 U/L (14-36); BLOOD UREA NITROGEN 17 mg/dL (7-17); CALCIUM 7.9 mg/dl (8.6-10.4); GFR AFRICAN-AMERICAN > 60; GFR NON-AFRICAN AMERICAN > 60
--- NOTE | 2018-04-05 07:42 | CP.PCM.PN ---
<Caprice Pham - Last Filed: 04/05/18 15:41> Subjective - Date & Time of Evaluation Date of Evaluation: 04/05/18 Time of Evaluation: 09:40 - Subjective Subjective: PGY-1 Caprice Pham D.O. Medicine Consult note for Dr. Prem Cisneros's service : Patient is seen and examined this morning. She is complaining of R leg pain, but it is fairly well controlled with pain medications. The patient also has not had a BM in 3 days, but she does not want anything in addition to Colace at this point. Patient has urinated and has passed gas post-op. She is able to tolerate a regular diet. Objective - Vital Signs/Intake and Output Vital Signs (last 24 hours): Temp Pulse Resp BP Pulse Ox 98.8 F 80 20 139/84 95 04/04/18 23:40 04/05/18 01:02 04/04/18 23:40 04/04/18 23:40 04/04/18 23:40 Intake and Output: 04/05/18 04/05/18 06:59 18:59 Output Total 315 Balance -315 - Medications Medications: Current Medications Acetaminophen (Tylenol 325mg Tab) 650 mg PO Q6 PRN PRN Reason: Fever >100.4 F Aspirin (Ecotrin) 81 mg PO DAILY [facility] Last Admin: 04/04/18 09:34 Dose: 81 mg Atenolol (Tenormin) 25 mg PO BID [facility] Last Admin: 04/04/18 17:17 Dose: 25 mg Digoxin (Digoxin) 0.125 mg PO DAILY [facility] Last Admin: 04/04/18 09:34 Dose: 0.125 mg Docusate Sodium (Colace) 100 mg PO BID [facility] Last Admin: 04/04/18 17:17 Dose: 100 mg Enoxaparin Sodium (Lovenox) 40 mg SC DAILY [facility] Last Admin: 04/04/18 09:35 Dose: 40 mg Ergocalciferol (Drisdol 50,000 Intl Units Cap) 1 cap PO Q7D [facility] Last Admin: 04/04/18 09:33 Dose: 1 cap Sodium Chloride (Sodium Chloride 0.9%) 1,000 mls @ 60 mls/hr IV .[id number] [facility] Last Admin: 04/04/18 08:39 Dose: Not Given Morphine Sulfate (Morphine) 2 mg IVP Q4H PRN PRN Reason: Pain, severe (8-10) Last Admin: 04/04/18 12:56 Dose: 2 mg Oxycodone HCl (Oxycodone Immediate Release Tab) 5 mg PO Q4H PRN PRN Reason: Pain, moderate (4-7) Last Admin: 04/05/18 01:59 Dose: 5 mg Pregabalin (Lyrica) 50 mg PO BID [facility] Last Admin: 04/04/18 17:17 Dose: Not Given Rosuvastatin Calcium (Crestor) 10 mg PO HS [facility] Last Admin: 04/04/18 21:48 Dose: 10 mg Sennosides (Senokot Tab) 8.6 mg PO DAILY PRN PRN Reason: Constipation - Labs Labs: 04/05/18 06:13 04/05/18 06:13 PT 15.4 SECONDS (9.7-12.2) H 04/05/18 06:13 INR 1.4 04/05/18 06:13 - Constitutional Appears: Well, No Acute Distress - Head Exam Head Exam: ATRAUMATIC, NORMAL INSPECTION, NORMOCEPHALIC - Eye Exam Eye Exam: EOMI, Normal appearance Additional comments: 1 cm ecchymosis below inferiomedial Left eye- improved from yesterday - ENT Exam ENT Exam: Mucous Membranes Moist, Normal Exam - Neck Exam Neck Exam: Normal Inspection - Respiratory Exam Respiratory Exam: Clear to Ausculation Bilateral, NORMAL BREATHING PATTERN - Cardiovascular Exam Cardiovascular Exam: REGULAR RHYTHM, +S1, +S2 - GI/Abdominal Exam GI & Abdominal Exam: Soft, Normal Bowel Sounds. absent: Tenderness - Rectal Exam Rectal Exam: Deferred - Extremities Exam Extremities Exam: Normal Capillary Refill Additional comments: R leg bandaged and splinted post-op TKR - Back Exam Back Exam: NORMAL INSPECTION - Neurological Exam Neurological Exam: Alert, Awake, CN II-XII Intact, Oriented x3 - Psychiatric Exam Psychiatric exam: Normal Affect, Normal Mood - Skin Skin Exam: Dry, Intact, Normal Color, Warm Assessment and Plan - Assessment and Plan (Free Text) Assessment: Patient is an 82 yo female with a history of Afib, CAD, HTN, and OA who presents s/p Right TKR. Medicine was consulted to manage Afib and CAD. Plan: OA- s/p Right total knee replacement, POD2 - Management by ortho team (Dr. Love) - Lyrica 50 mg PO BID- pt refusing - Tylenol 650 mg PO q6hrs PRN - Oxycodone 5 mg PO q4hrs PRN - Morphine 2 mg IV q4hrs PRN Atrial fibrillation- pt currently in NSR, HR 60s, INR this morning 04/05 1.4 - Monitor on telemetry- no events - Continue home digoxin 0.125 mg PO daily- dig level 0.8 this morning 04/04 - Continue home Atenolol 25 mg PO BID - Patient on warfarin 4.5 mg at home- held pre-op, restarted 04/04 - Lovenox 40 mg SC daily- warfarin bridge - Monitor PT/INR- 15.4/1.4 this morning 04/05 - Cardiology consulted (Dr. Munson)- continue current management CAD s/p 1 stent in 1999 - Continue home ASA 81 - Continue home Atenolol 25 mg PO BID - Continue statin- Crestor 10 mg PO QHS - Cardiology consulted (Dr. Munson) Essential HTN, chronic, stable - Vitals q4hrs - Continue home Atenolol 25 mg PO BID Vitamin D deficiency, chronic- current level 19.9 - Continue home calcium/vit D 1x/wk IVF: NS @ 60 mL Diet: heart healthy VTE ppx: Lovenox 40 SC bridge to warfarin 4.5 mg GI ppx: Pepcid 20 mg PO BID, Colace 100 mg BID, Senokote 8.6 mg PO daily PRN Code status: full code Dispo: likely d/c to [facility] tomorrow 04/05 <Prem Cisneros - Last Filed: 04/05/18 16:29> Objective - Vital Signs/Intake and Output Vital Signs (last 24 hours): Temp Pulse Resp BP Pulse Ox 97.6 F 68 20 140/77 96 04/05/18 15:00 04/05/18 15:00 04/05/18 15:00 04/05/18 15:00 04/05/18 15:00 Intake and Output: 04/05/18 04/05/18 06:59 18:59 Intake Total 1200 Output Total 315 0 Balance -315 1200 - Medications Medications: Current Medications Acetaminophen (Tylenol 325mg Tab) 650 mg PO Q6 PRN PRN Reason: Fever >100.4 F Aspirin (Ecotrin) 81 mg PO DAILY [facility] Last Admin: 04/05/18 10:22 Dose: 81 mg Atenolol (Tenormin) 25 mg PO BID [facility] Last Admin: 04/05/18 10:21 Dose: 25 mg Digoxin (Digoxin) 0.125 mg PO DAILY [facility] Last Admin: 04/05/18 10:22 Dose: 0.125 mg Docusate Sodium (Colace) 100 mg PO BID [facility] Last Admin: 04/05/18 10:21 Dose: 100 mg Enoxaparin Sodium (Lovenox) 40 mg SC DAILY [facility] Last Admin: 04/05/18 10:20 Dose: 40 mg Ergocalciferol (Drisdol 50,000 Intl Units Cap) 1 cap PO Q7D [facility] Last Admin: 04/04/18 09:33 Dose: 1 cap Famotidine (Pepcid) 20 mg PO BID [facility] Sodium Chloride (Sodium Chloride 0.9%) 1,000 mls @ 60 mls/hr IV .[id number] [facility] Last Admin: 04/04/18 08:39 Dose: Not Given Morphine Sulfate (Morphine) 2 mg IVP Q4H PRN PRN Reason: Pain, severe (8-10) Last Admin: 04/05/18 08:43 Dose: 2 mg Oxycodone HCl (Oxycodone Immediate Release Tab) 5 mg PO Q4H PRN PRN Reason: Pain, moderate (4-7) Last Admin: 04/05/18 10:22 Dose: 5 mg Pregabalin (Lyrica) 50 mg PO BID [facility] Last Admin: 04/05/18 10:09 Dose: Not Given Rosuvastatin Calcium (Crestor) 10 mg PO HS [facility] Last Admin: 04/04/18 21:48 Dose: 10 mg Sennosides (Senokot Tab) 8.6 mg PO DAILY PRN PRN Reason: Constipation Warfarin Sodium (Coumadin) 2 mg PO 1800 [facility] Stop: 04/05/18 18:01 Warfarin Sodium (Coumadin) 2.5 mg PO 1800 [facility] Stop: 04/05/18 18:01 - Labs Labs: 04/05/18 06:13 04/05/18 06:13 PT 15.4 SECONDS (9.7-12.2) H 04/05/18 06:13 INR 1.4 04/05/18 06:13 Attending/Attestation - Attestation I have personally seen and examined this patient.: Yes I have fully participated in the care of the patient.: Yes I have reviewed all pertinent clinical information, including history, physical exam and plan: Yes Notes (Text): 04/05/18 16:27 Medical attending: Patient was seen and examined by me. Agree with the above note by the resident. The patient was not in any acute distress when we came and examined her The feet on exam was warm, palpable pulses, From my unserstanding they are trying to arrange the patient to go to [facility] for further rehabilitation thank you Prem Cisneros
[2018-04-05] MEDS: Enoxaparin 40 mg Syringe SC SCH (10:20)
[2018-04-05] MEDS: Digoxin 125 mcg (0.125 mg) Tab PO SCH (10:22)
[2018-04-05] MEDS ORDERED: Pantoprazole 20 mg EC Tab PO ONE (13:45)
[2018-04-05] MEDS: Sodium Chloride 0.9% 1,000 ML IV SCH (16:30)
--- NOTE | 2018-04-05 20:30 | CP.PCM.PN ---
Subjective - Date & Time of Evaluation Date of Evaluation: 04/05/18 Time of Evaluation: 08:45 - Subjective Subjective: Patient seen and examined. Alert and awake, sitting in bed. Patient states she did physical therapy. She states pain is controlled Afebrile WBC 10.7 Hgb 8.6 R knee: dressings, hemovac and wound vac removed. Incision is clean and intact and dry with boston in place. No erythema or drainage. Ecchymosis noted. Moderate effusion. Incision clean with NSS and light dry dressings applied. Thigh and calf are soft and nontender. NVI distally Cont PT Cont DVT prophylaxis Cont ice Cont incentive spirometer Discharge today to [facility] or tomorrow pending insurance Will see patient in Dr. Love's office in 2 weeks Discussed above with Dr. Love, agrees with above Objective - Vital Signs/Intake and Output Vital Signs (last 24 hours): Temp Pulse Resp BP Pulse Ox 98.8 F 80 20 139/84 95 04/04/18 23:40 04/05/18 01:02 04/04/18 23:40 04/04/18 23:40 04/04/18 23:40 Intake and Output: 04/05/18 04/05/18 06:59 18:59 Intake Total 720 Output Total 315 0 Balance -315 720 - Medications Medications: Current Medications Acetaminophen (Tylenol 325mg Tab) 650 mg PO Q6 PRN PRN Reason: Fever >100.4 F Aspirin (Ecotrin) 81 mg PO DAILY [facility] Last Admin: 04/04/18 09:34 Dose: 81 mg Atenolol (Tenormin) 25 mg PO BID [facility] Last Admin: 04/04/18 17:17 Dose: 25 mg Digoxin (Digoxin) 0.125 mg PO DAILY [facility] Last Admin: 04/04/18 09:34 Dose: 0.125 mg Docusate Sodium (Colace) 100 mg PO BID [facility] Last Admin: 04/04/18 17:17 Dose: 100 mg Enoxaparin Sodium (Lovenox) 40 mg SC DAILY [facility] Last Admin: 04/04/18 09:35 Dose: 40 mg Ergocalciferol (Drisdol 50,000 Intl Units Cap) 1 cap PO Q7D [facility] Last Admin: 04/04/18 09:33 Dose: 1 cap Sodium Chloride (Sodium Chloride 0.9%) 1,000 mls @ 60 mls/hr IV .[id number] [facility] Last Admin: 04/04/18 08:39 Dose: Not Given Morphine Sulfate (Morphine) 2 mg IVP Q4H PRN PRN Reason: Pain, severe (8-10) Last Admin: 04/05/18 08:43 Dose: 2 mg Oxycodone HCl (Oxycodone Immediate Release Tab) 5 mg PO Q4H PRN PRN Reason: Pain, moderate (4-7) Last Admin: 04/05/18 01:59 Dose: 5 mg Pregabalin (Lyrica) 50 mg PO BID [facility] Last Admin: 04/04/18 17:17 Dose: Not Given Rosuvastatin Calcium (Crestor) 10 mg PO HS [facility] Last Admin: 04/04/18 21:48 Dose: 10 mg Sennosides (Senokot Tab) 8.6 mg PO DAILY PRN PRN Reason: Constipation - Labs Labs: 04/05/18 06:13 04/05/18 06:13 PT 15.4 SECONDS (9.7-12.2) H 04/05/18 06:13 INR 1.4 04/05/18 06:13
--- NOTE | 2018-04-05 22:42 | CP.PCM.PN ---
Subjective - Date & Time of Evaluation Date of Evaluation: 04/05/18 Time of Evaluation: 11:10 - Subjective Subjective: Patient seen and evaluated No cardiac events noted Patient denies chest pain and dyspnea Objective - Vital Signs/Intake and Output Vital Signs (last 24 hours): Temp Pulse Resp BP Pulse Ox 97.6 F 68 20 140/77 96 04/05/18 15:00 04/05/18 15:00 04/05/18 15:00 04/05/18 15:00 04/05/18 15:00 Intake and Output: 04/05/18 04/06/18 18:59 06:59 Intake Total 1200 Output Total 0 150 Balance 1200 -150 - Medications Medications: Current Medications Acetaminophen (Tylenol 325mg Tab) 650 mg PO Q6 PRN PRN Reason: Fever >100.4 F Aspirin (Ecotrin) 81 mg PO DAILY [facility] Last Admin: 04/05/18 10:22 Dose: 81 mg Atenolol (Tenormin) 25 mg PO BID [facility] Last Admin: 04/05/18 18:43 Dose: 25 mg Digoxin (Digoxin) 0.125 mg PO DAILY [facility] Last Admin: 04/05/18 10:22 Dose: 0.125 mg Docusate Sodium (Colace) 100 mg PO BID [facility] Last Admin: 04/05/18 18:40 Dose: 100 mg Enoxaparin Sodium (Lovenox) 40 mg SC DAILY [facility] Last Admin: 04/05/18 10:20 Dose: 40 mg Ergocalciferol (Drisdol 50,000 Intl Units Cap) 1 cap PO Q7D [facility] Last Admin: 04/04/18 09:33 Dose: 1 cap Famotidine (Pepcid) 20 mg PO BID [facility] Last Admin: 04/05/18 18:40 Dose: 20 mg Sodium Chloride (Sodium Chloride 0.9%) 1,000 mls @ 60 mls/hr IV .[id number] [facility] Last Admin: 04/05/18 16:30 Dose: 60 mls/hr Morphine Sulfate (Morphine) 2 mg IVP Q4H PRN PRN Reason: Pain, severe (8-10) Last Admin: 04/05/18 08:43 Dose: 2 mg Oxycodone HCl (Oxycodone Immediate Release Tab) 5 mg PO Q4H PRN PRN Reason: Pain, moderate (4-7) Last Admin: 04/05/18 10:22 Dose: 5 mg Pregabalin (Lyrica) 50 mg PO BID [facility] Last Admin: 04/05/18 18:41 Dose: Not Given Rosuvastatin Calcium (Crestor) 10 mg PO HS [facility] Last Admin: 04/05/18 21:41 Dose: 10 mg Sennosides (Senokot Tab) 8.6 mg PO DAILY PRN PRN Reason: Constipation - Labs Labs: 04/05/18 06:13 04/05/18 06:13 PT 15.4 SECONDS (9.7-12.2) H 04/05/18 06:13 INR 1.4 04/05/18 06:13
--- NOTE | 2018-04-06 06:23 | CP.PCM.PN ---
<Caprice Pham - Last Filed: 04/06/18 18:04> Subjective - Date & Time of Evaluation Date of Evaluation: 04/06/18 Time of Evaluation: 09:10 - Subjective Subjective: PGY-1 Caprice Pham D.O. Medicine Consult progress note for Dr. Prem Cisneros' s service: Patient is seen and examined this morning. She is complaining of fatigue. Her Hgb has downtrended to 7.9 since her operation. Discussed blood transfusion with patient prior to discharge to [facility]. Explained that it will help with her fatigue and allow her to participate fully in therapy. Patient denies DUNCAN, chest pain, SOB, or palpitations. She still has not yet had a BM post-op, but she is urinating and passing flatus. She is eating and sleeping well. He leg pain is fairly well controlled. Objective - Vital Signs/Intake and Output Vital Signs (last 24 hours): Temp Pulse Resp BP Pulse Ox 99.0 F 79 20 150/62 95 04/06/18 00:00 04/06/18 03:45 04/06/18 00:00 04/06/18 00:00 04/06/18 00:00 Intake and Output: 04/05/18 04/06/18 18:59 06:59 Intake Total 1200 960 Output Total 0 550 Balance 1200 410 - Medications Medications: Current Medications Acetaminophen (Tylenol 325mg Tab) 650 mg PO Q6 PRN PRN Reason: Fever >100.4 F Aspirin (Ecotrin) 81 mg PO DAILY [facility] Last Admin: 04/05/18 10:22 Dose: 81 mg Atenolol (Tenormin) 25 mg PO BID [facility] Last Admin: 04/05/18 18:43 Dose: 25 mg Digoxin (Digoxin) 0.125 mg PO DAILY [facility] Last Admin: 04/05/18 10:22 Dose: 0.125 mg Docusate Sodium (Colace) 100 mg PO BID [facility] Last Admin: 04/05/18 18:40 Dose: 100 mg Enoxaparin Sodium (Lovenox) 40 mg SC DAILY [facility] Last Admin: 04/05/18 10:20 Dose: 40 mg Ergocalciferol (Drisdol 50,000 Intl Units Cap) 1 cap PO Q7D [facility] Last Admin: 04/04/18 09:33 Dose: 1 cap Famotidine (Pepcid) 20 mg PO BID [facility] Last Admin: 04/05/18 18:40 Dose: 20 mg Sodium Chloride (Sodium Chloride 0.9%) 1,000 mls @ 60 mls/hr IV .[id number] [facility] Last Admin: 04/05/18 16:30 Dose: 60 mls/hr Morphine Sulfate (Morphine) 2 mg IVP Q4H PRN PRN Reason: Pain, severe (8-10) Last Admin: 04/05/18 08:43 Dose: 2 mg Oxycodone HCl (Oxycodone Immediate Release Tab) 5 mg PO Q4H PRN PRN Reason: Pain, moderate (4-7) Last Admin: 04/05/18 10:22 Dose: 5 mg Pregabalin (Lyrica) 50 mg PO BID [facility] Last Admin: 04/05/18 18:41 Dose: Not Given Rosuvastatin Calcium (Crestor) 10 mg PO HS [facility] Last Admin: 04/05/18 21:41 Dose: 10 mg Sennosides (Senokot Tab) 8.6 mg PO DAILY PRN PRN Reason: Constipation - Labs Labs: 04/05/18 06:13 04/05/18 06:13 PT 15.4 SECONDS (9.7-12.2) H 04/05/18 06:13 INR 1.4 04/05/18 06:13 - Constitutional Appears: Well, No Acute Distress - Head Exam Head Exam: ATRAUMATIC, NORMAL INSPECTION, NORMOCEPHALIC - Eye Exam Eye Exam: EOMI, Normal appearance - ENT Exam ENT Exam: Mucous Membranes Moist, Normal Exam - Neck Exam Neck Exam: Normal Inspection - Respiratory Exam Respiratory Exam: Clear to Ausculation Bilateral, NORMAL BREATHING PATTERN - Cardiovascular Exam Cardiovascular Exam: REGULAR RHYTHM, +S1, +S2 - GI/Abdominal Exam GI & Abdominal Exam: Soft, Normal Bowel Sounds - Rectal Exam Rectal Exam: Deferred - Extremities Exam Extremities Exam: Normal Capillary Refill Additional comments: R leg bandaged and splinted post-op TKR - Back Exam Back Exam: NORMAL INSPECTION - Neurological Exam Neurological Exam: Alert, Awake, CN II-XII Intact, Oriented x3 - Psychiatric Exam Psychiatric exam: Normal Affect, Normal Mood - Skin Skin Exam: Dry, Intact, Normal Color, Warm Assessment and Plan - Assessment and Plan (Free Text) Assessment: Patient is an 82 yo female with a history of Afib, CAD, HTN, and OA who presents s/p Right TKR. Medicine was consulted to manage Afib and CAD. Plan: Anemia, acute- Hgb 7.9 - Transfuse 1u PRBC on 04/06 - F/u H&H 1 hour after transfusion Constipation - Colace 100 mg BID - Senokote 8.6 mg PO daily PRN - Miralax x2 on 04/06 OA- s/p Right total knee replacement, POD3 - Management by ortho team (Dr. Love) - Lyrica 50 mg PO BID- pt refusing - Tylenol 650 mg PO q6hrs PRN - Oxycodone 5 mg PO q4hrs PRN - Morphine 2 mg IV q4hrs PRN Atrial fibrillation- pt currently in NSR, HR 60s, INR this morning 04/06 1.7 - Monitor on telemetry- no events - Continue home digoxin 0.125 mg PO daily- dig level 0.8 on 04/04 - Continue home Atenolol 25 mg PO BID - Patient on warfarin 4.5 mg at home- held pre-op, restarted 04/04 - Lovenox 40 mg SC daily- warfarin bridge - Monitor PT/INR- 18.7/1.7 this morning 03/21 - Cardiology consulted (Dr. Munson)- continue current management CAD s/p 1 stent in 1999 - Continue home ASA 81 - Continue home Atenolol 25 mg PO BID - Continue statin- Crestor 10 mg PO QHS - Cardiology consulted (Dr. Munson) Essential HTN, chronic, stable - Vitals q4hrs - Continue home Atenolol 25 mg PO BID Vitamin D deficiency, chronic- current level 19.9 - Continue home calcium/vit D 1x/wk IVF: not indicated Diet: heart healthy VTE ppx: Lovenox 40 SC bridge to warfarin 4.5 mg GI ppx: Pepcid 20 mg PO BID, Colace 100 mg BID, Senokote 8.6 mg PO daily PRN Code status: full code Dispo: d/c to [facility] tomorrow 04/07 <Prem Cisneros - Last Filed: 04/08/18 11:17> Objective - Vital Signs/Intake and Output Vital Signs (last 24 hours): Temp Pulse Resp BP Pulse Ox 98.4 F 81 18 137/78 97 04/07/18 11:32 04/07/18 11:32 04/07/18 11:32 04/07/18 11:32 04/07/18 11:32 - Labs Labs: 04/07/18 06:59 04/07/18 06:59 PT 19.8 SECONDS (9.7-12.2) H 04/07/18 06:59 INR 1.8 04/07/18 06:59 Attending/Attestation - Attestation I have personally seen and examined this patient.: Yes I have fully participated in the care of the patient.: Yes I have reviewed all pertinent clinical information, including history, physical exam and plan: Yes Notes (Text): Medical Consult: Please note this is a later signing. The patient was seen and examined by me with the medical accountant. The patient was feeling well at rest she said - however participating with PT made her tired. Lab work showed Hgb was lower. She does have history of atrial fibrillation as well and restarted on anticoagulation for this. We explained to her that she would benifit from additional PRBCs since she would probably feel better during her time at rehab. She can still go to rehab after completing another PRBC thank you Prem Cisneros
[2018-04-06 08:27] VITALS: O2SAT 97
[2018-04-06 08:32] LABS: HEMOGLOBIN 7.9 g/dL (11.0-16.0); MEAN CELL VOLUME 84.3 fL (81.0-99.0); MEAN CORPUSCULAR HEMOGLOBIN 29.3 pg (27.0-31.0); MEAN CORPUSCULAR HGB CONC 34.8 g/dL (33.0-37.0); MEAN PLATELET VOLUME 9.3 fL (7.2-11.7); RBC 2.69 Mil/uL (3.80-5.20); RED CELL DISTRIBUTION WIDTH 16.6 % (11.5-14.5); WHITE BLOOD COUNT 9.4 K/uL (4.8-10.8)
[2018-04-06 08:34] LABS: INR 1.7; PROTHROMBIN TIME 18.7 SECONDS (9.7-12.2)
[2018-04-06 08:47] LABS: ALB/GLOB RATIO 1.2 (1.0-2.1); ALBUMIN 3.1 g/dL (3.5-5.0); ALT/SGPT 28 U/L (9-52); AST/SGOT 16 U/L (14-36); BLOOD UREA NITROGEN 12 mg/dL (7-17); CALCIUM 7.9 mg/dl (8.6-10.4); GFR AFRICAN-AMERICAN > 60; GFR NON-AFRICAN AMERICAN > 60
[2018-04-06] MEDS ORDERED: POLYETHYLENE GLYCOL 3350 17 GM/Dose PACKET PO ONE (09:30)
[2018-04-06] MEDS: Enoxaparin 40 mg Syringe SC SCH (10:00)
[2018-04-06] MEDS: oxyCODONE 5 mg Immediate Release Tab PO PRN (10:01)
[2018-04-06] MEDS: Digoxin 125 mcg (0.125 mg) Tab PO SCH (10:01)
--- NOTE | 2018-04-06 11:39 | CP.PCM.PN ---
Subjective - Date & Time of Evaluation Date of Evaluation: 04/06/18 Time of Evaluation: 11:38 - Subjective Subjective: Pt awake, alert. Sitting up in chair. Adequate pain control. Afebrile R knee: dressing changed incision clean no cellulitis eccymosis noted thigh and calf soft, NT NVI distally Hg 7.9 POD#3 Pt to be transfused today. Possible d/c to rehab tomorrow Objective - Vital Signs/Intake and Output Vital Signs (last 24 hours): Temp Pulse Resp BP Pulse Ox 98.7 F 74 20 149/83 97 04/06/18 07:20 04/06/18 09:55 04/06/18 07:20 04/06/18 09:55 04/06/18 07:20 Intake and Output: 04/06/18 04/06/18 06:59 18:59 Intake Total 960 Output Total 550 Balance 410 - Medications Medications: Current Medications Acetaminophen (Tylenol 325mg Tab) 650 mg PO Q6 PRN PRN Reason: Fever >100.4 F Aspirin (Ecotrin) 81 mg PO DAILY [facility] Last Admin: 04/06/18 10:01 Dose: 81 mg Atenolol (Tenormin) 25 mg PO BID [facility] Last Admin: 04/06/18 10:01 Dose: 25 mg Digoxin (Digoxin) 0.125 mg PO DAILY [facility] Last Admin: 04/06/18 10:01 Dose: 0.125 mg Docusate Sodium (Colace) 100 mg PO BID [facility] Last Admin: 04/06/18 10:01 Dose: 100 mg Enoxaparin Sodium (Lovenox) 40 mg SC DAILY [facility] Last Admin: 04/06/18 10:00 Dose: 40 mg Ergocalciferol (Drisdol 50,000 Intl Units Cap) 1 cap PO Q7D [facility] Last Admin: 04/04/18 09:33 Dose: 1 cap Famotidine (Pepcid) 20 mg PO BID [facility] Last Admin: 04/06/18 10:01 Dose: 20 mg Sodium Chloride (Sodium Chloride 0.9%) 1,000 mls @ 60 mls/hr IV .[id number] [facility] Last Admin: 04/05/18 16:30 Dose: 60 mls/hr Morphine Sulfate (Morphine) 2 mg IVP Q4H PRN PRN Reason: Pain, severe (8-10) Last Admin: 04/05/18 08:43 Dose: 2 mg Oxycodone HCl (Oxycodone Immediate Release Tab) 5 mg PO Q4H PRN PRN Reason: Pain, moderate (4-7) Last Admin: 04/06/18 10:01 Dose: 5 mg Pregabalin (Lyrica) 50 mg PO BID [facility] Last Admin: 04/06/18 10:06 Dose: Not Given Rosuvastatin Calcium (Crestor) 10 mg PO HS [facility] Last Admin: 04/05/18 21:41 Dose: 10 mg Sennosides (Senokot Tab) 8.6 mg PO DAILY [facility] Last Admin: 04/06/18 10:01 Dose: 8.6 mg Warfarin Sodium (Coumadin) 2.5 mg PO 1800 [facility] Stop: 04/06/18 18:01 Warfarin Sodium (Coumadin) 2 mg PO 1800 [facility] Stop: 04/06/18 18:01 - Labs Labs: 04/06/18 08:18 04/06/18 08:18 PT 18.7 SECONDS (9.7-12.2) H 04/06/18 08:18 INR 1.7 04/06/18 08:18
--- NOTE | 2018-04-06 13:02 | CP.PCM.PN ---
<Karen Rae - Last Filed: 04/06/18 13:55> Subjective - Date & Time of Evaluation Date of Evaluation: 04/06/18 Time of Evaluation: 13:01 - Subjective Subjective: Cardiology Progress Note - Dr Munson Patient seen and examined at bedside. Per nursing no acute events overnight. Patient is doing well, offers no complaints at this time. Denies chest pain or dyspnea. Objective - Vital Signs/Intake and Output Vital Signs (last 24 hours): Temp Pulse Resp BP Pulse Ox 98.7 F 74 20 149/83 97 04/06/18 07:20 04/06/18 09:55 04/06/18 07:20 04/06/18 09:55 04/06/18 07:20 Intake and Output: 04/06/18 04/06/18 06:59 18:59 Intake Total 960 Output Total 550 Balance 410 - Medications Medications: Current Medications Acetaminophen (Tylenol 325mg Tab) 650 mg PO Q6 PRN PRN Reason: Fever >100.4 F Aspirin (Ecotrin) 81 mg PO DAILY [facility] Last Admin: 04/06/18 10:01 Dose: 81 mg Atenolol (Tenormin) 25 mg PO BID [facility] Last Admin: 04/06/18 10:01 Dose: 25 mg Digoxin (Digoxin) 0.125 mg PO DAILY [facility] Last Admin: 04/06/18 10:01 Dose: 0.125 mg Docusate Sodium (Colace) 100 mg PO BID [facility] Last Admin: 04/06/18 10:01 Dose: 100 mg Enoxaparin Sodium (Lovenox) 40 mg SC DAILY [facility] Last Admin: 04/06/18 10:00 Dose: 40 mg Ergocalciferol (Drisdol 50,000 Intl Units Cap) 1 cap PO Q7D [facility] Last Admin: 04/04/18 09:33 Dose: 1 cap Famotidine (Pepcid) 20 mg PO BID [facility] Last Admin: 04/06/18 10:01 Dose: 20 mg Sodium Chloride (Sodium Chloride 0.9%) 1,000 mls @ 60 mls/hr IV .[id number] [facility] Last Admin: 04/05/18 16:30 Dose: 60 mls/hr Morphine Sulfate (Morphine) 2 mg IVP Q4H PRN PRN Reason: Pain, severe (8-10) Last Admin: 04/05/18 08:43 Dose: 2 mg Oxycodone HCl (Oxycodone Immediate Release Tab) 5 mg PO Q4H PRN PRN Reason: Pain, moderate (4-7) Last Admin: 04/06/18 10:01 Dose: 5 mg Pregabalin (Lyrica) 50 mg PO BID [facility] Last Admin: 04/06/18 10:06 Dose: Not Given Rosuvastatin Calcium (Crestor) 10 mg PO HS [facility] Last Admin: 04/05/18 21:41 Dose: 10 mg Sennosides (Senokot Tab) 8.6 mg PO DAILY [facility] Last Admin: 04/06/18 10:01 Dose: 8.6 mg Warfarin Sodium (Coumadin) 2.5 mg PO 1800 [facility] Stop: 04/06/18 18:01 Warfarin Sodium (Coumadin) 2 mg PO 1800 [facility] Stop: 04/06/18 18:01 - Labs Labs: 04/06/18 08:18 04/06/18 08:18 PT 18.7 SECONDS (9.7-12.2) H 04/06/18 08:18 INR 1.7 04/06/18 08:18 - Constitutional Appears: Well, No Acute Distress - Head Exam Head Exam: ATRAUMATIC, NORMAL INSPECTION - Eye Exam Eye Exam: EOMI Pupil Exam: NORMAL ACCOMODATION - ENT Exam ENT Exam: Mucous Membranes Moist - Respiratory Exam Respiratory Exam: Clear to Ausculation Bilateral, NORMAL BREATHING PATTERN. absent: Rales, Rhonchi, Wheezes - Cardiovascular Exam Cardiovascular Exam: Irregular Rhythm, +S1, +S2 - GI/Abdominal Exam GI & Abdominal Exam: Soft. absent: Tenderness - Extremities Exam Additional comments: right lower extremity dressing intact - Neurological Exam Neurological Exam: Alert, Awake, Oriented x3 - Psychiatric Exam Psychiatric exam: Normal Affect, Normal Mood - Skin Skin Exam: Dry, Normal Color, Warm Assessment and Plan - Assessment and Plan (Free Text) Assessment: A/P: Patient is a 82 year old female with a history of CAD s/p 1 stent, Afib, OA , and HTN who presents s/p Right total knee replacement Atrial fibrillation -Stable, afebrile -Monitor on telemetry -EKG on 03/23 showed atrial fibrillation with premature ventricular or aberrantly conducted complexes -Digoxin level 0.8 -Continue Atenolol 25mg PO BID, Digoxin 0.125mg PO daily -Last Stress test is 2015 showed fixed anterior defect likely due to breast attenuation, no change from prior study in 2015 Acute blood loss anemia -Hgb 7.9 today -Patient is s/p PRBCs -F/U repeat CBC Subtherapeutic INR -INR today 1.7 -Goal 2.0-3.0 -Continue Coumadin and Lovenox S/P Right total knee replacement -Management per ortho -Physical therapy/occupational therapy HTN -Continue medications Vitamin D Deficiency -Vitamin D 19.9 -Continue supplementation Constipation -Continue Colace and ducolax -Monitor bowel function Plan discussed with Dr Arpit Rae DO PGY-2 <Jayjay Munson - Last Filed: 04/06/18 22:27> Objective - Vital Signs/Intake and Output Vital Signs (last 24 hours): Temp Pulse Resp BP Pulse Ox 97.8 F 73 18 135/79 97 04/06/18 16:08 04/06/18 16:08 04/06/18 16:08 04/06/18 16:08 04/06/18 07:20 Intake and Output: 04/06/18 04/07/18 18:59 06:59 Intake Total 1295 Output Total 550 Balance 745 - Medications Medications: Current Medications Acetaminophen (Tylenol 325mg Tab) 650 mg PO Q6 PRN PRN Reason: Fever >100.4 F Aspirin (Ecotrin) 81 mg PO DAILY [facility] Last Admin: 04/06/18 10:01 Dose: 81 mg Atenolol (Tenormin) 25 mg PO BID [facility] Last Admin: 04/06/18 17:35 Dose: 25 mg Digoxin (Digoxin) 0.125 mg PO DAILY [facility] Last Admin: 04/06/18 10:01 Dose: 0.125 mg Docusate Sodium (Colace) 100 mg PO BID [facility] Last Admin: 04/06/18 17:35 Dose: 100 mg Enoxaparin Sodium (Lovenox) 40 mg SC DAILY [facility] Last Admin: 04/06/18 10:00 Dose: 40 mg Ergocalciferol (Drisdol 50,000 Intl Units Cap) 1 cap PO Q7D [facility] Last Admin: 04/04/18 09:33 Dose: 1 cap Famotidine (Pepcid) 20 mg PO BID [facility] Last Admin: 04/06/18 17:36 Dose: 20 mg Morphine Sulfate (Morphine) 2 mg IVP Q4H PRN PRN Reason: Pain, severe (8-10) Last Admin: 04/06/18 13:14 Dose: 2 mg Oxycodone HCl (Oxycodone Immediate Release Tab) 5 mg PO Q4H PRN PRN Reason: Pain, moderate (4-7) Last Admin: 04/06/18 10:01 Dose: 5 mg Pregabalin (Lyrica) 50 mg PO BID [facility] Last Admin: 04/06/18 17:35 Dose: Not Given Rosuvastatin Calcium (Crestor) 10 mg PO [facility] Last Admin: 04/06/18 21:07 Dose: 10 mg Sennosides (Senokot Tab) 8.6 mg PO DAILY [facility] Last Admin: 04/06/18 10:01 Dose: 8.6 mg - Labs Labs: 04/06/18 19:37 04/06/18 08:18 PT 18.7 SECONDS (9.7-12.2) H 04/06/18 08:18 INR 1.7 04/06/18 08:18 Assessment and Plan - Assessment and Plan (Free Text) Assessment: Patient seen and evaluated personally by me. Plan of care d/w the medical instrument cable fabricator and as documented
[2018-04-06] MEDS: Sodium Chloride 0.9% 1,000 ML IV SCH ×2 (13:06)
[2018-04-06] MEDS ORDERED: POLYETHYLENE GLYCOL 3350 17 GM/Dose PACKET PO STA (17:55)
[2018-04-06 19:40] LABS: HEMOGLOBIN 9.1 g/dL (11.0-16.0)
[2018-04-07] MEDS: oxyCODONE 5 mg Immediate Release Tab PO PRN (04:52)
[2018-04-07 07:08] LABS: BASO # 0.1 K/uL (0.0-0.2); BASO % 0.7 % (0.0-2.0); EOS # 0.2 K/uL (0.0-0.7); HEMOGLOBIN 8.3 g/dL (11.0-16.0); LYMPH # 1.4 K/uL (1.0-4.3); MEAN CELL VOLUME 84.1 fL (81.0-99.0); MEAN CORPUSCULAR HEMOGLOBIN 29.2 pg (27.0-31.0); MEAN CORPUSCULAR HGB CONC 34.7 g/dL (33.0-37.0); MEAN PLATELET VOLUME 9.5 fL (7.2-11.7); MONO % 11.4 % (0.0-10.0); NEUT # 6.1 K/uL (1.8-7.0); NEUT % 69.9 % (50.0-75.0); RBC 2.84 Mil/uL (3.80-5.20); RED CELL DISTRIBUTION WIDTH 15.9 % (11.5-14.5); WHITE BLOOD COUNT 8.8 K/uL (4.8-10.8)
[2018-04-07 07:12] LABS: INR 1.8; PROTHROMBIN TIME 19.8 SECONDS (9.7-12.2)
[2018-04-07 07:32] LABS: BLOOD UREA NITROGEN 14 mg/dL (7-17); CALCIUM 7.9 mg/dl (8.6-10.4); GFR AFRICAN-AMERICAN > 60; GFR NON-AFRICAN AMERICAN > 60
[2018-04-07] MEDS: Digoxin 125 mcg (0.125 mg) Tab PO SCH (09:51)
[2018-04-07 09:53] VITALS: PULSE 64
[2018-04-07] MEDS: Enoxaparin 40 mg Syringe SC SCH (09:54)
[2018-04-07 11:32] VITALS: BP 137/78; PULSE 81; RESP 18; TEMP 98.4
--- NOTE | 2018-04-07 20:10 | CP.PCM.PN ---
Subjective - Date & Time of Evaluation Date of Evaluation: 04/07/18 Time of Evaluation: 11:35 - Subjective Subjective: Patient examined at bedside. No acute events overnight. Patient reports she still has not had a BM since before surgery on (04/03). Patient reports pain in right leg is improving. Denies chest pain, SOB, nausea, vomiting, numbness in RLE. Objective - Vital Signs/Intake and Output Vital Signs (last 24 hours): Temp Pulse Resp BP Pulse Ox 98.4 F 81 18 137/78 97 04/07/18 11:32 04/07/18 11:32 04/07/18 11:32 04/07/18 11:32 04/07/18 11:32 - Labs Labs: 04/07/18 06:59 04/07/18 06:59 PT 19.8 SECONDS (9.7-12.2) H 04/07/18 06:59 INR 1.8 04/07/18 06:59 - Constitutional Appears: Non-toxic, No Acute Distress - Head Exam Head Exam: ATRAUMATIC, NORMAL INSPECTION, NORMOCEPHALIC - Eye Exam Eye Exam: EOMI, Normal appearance - ENT Exam ENT Exam: Mucous Membranes Moist, Normal Exam - Neck Exam Neck Exam: Normal Inspection - Respiratory Exam Respiratory Exam: Clear to Ausculation Bilateral, Rhonchi, Wheezes, NORMAL BREATHING PATTERN. absent: Respiratory Distress - Cardiovascular Exam Cardiovascular Exam: REGULAR RHYTHM, +S1, +S2. absent: Tachycardia, Murmur - GI/Abdominal Exam GI & Abdominal Exam: Soft, Normal Bowel Sounds. absent: Distended, Tenderness - Extremities Exam Extremities Exam: Pedal Edema (RLE pedal edema distal to brace), Tenderness. absent: Calf Tenderness, Normal Inspection (Right leg bandaged and in brace) - Neurological Exam Neurological Exam: Alert, Awake, Oriented x3. absent: Motor Sensory Deficit - Psychiatric Exam Psychiatric exam: Normal Affect, Normal Mood - Skin Skin Exam: Dry, Intact, Normal Color, Warm Assessment and Plan - Assessment and Plan (Free Text) Assessment: Anemia, acute- Hgb 8.3 -1u PRBC on 04/06 Constipation -glycerine adult suppository OA- s/p Right total knee replacement, POD4 - Management by ortho team (Dr. Love) - Lyrica 50 mg PO BID - Tylenol 650 mg PO q6hrs PRN - Oxycodone 5 mg PO q4hrs PRN - Morphine 2 mg IV q4hrs PRN Atrial fibrillation- pt currently in NSR, HR 60s, INR this morning 1.8 - Monitor on telemetry- no events - Continue home digoxin 0.125 mg PO daily- dig level 0.8 on 04/04 - Continue home Atenolol 25 mg PO BID - warfarin 4.5mg - Lovenox 40 mg SC daily- warfarin bridge - Monitor PT/INR-1.8 - Cardiology consulted (Dr. Munson)- continue current management CAD s/p 1 stent in 1999 - Continue home ASA 81 - Continue home Atenolol 25 mg PO BID - Continue statin- Crestor 10 mg PO QHS - Cardiology consulted (Dr. Munson) Essential HTN, chronic, stable - Vitals q4hrs - Continue home Atenolol 25 mg PO BID Vitamin D deficiency, chronic- current level 19.9 - Continue home calcium/vit D 1x/wk Diet: heart healthy VTE ppx: Lovenox 40 SC bridge to warfarin 4.5 mg GI ppx: Pepcid 20 mg PO BID Code status: full code Dispo: [facility] rehab
--- NOTE | 2018-04-09 17:42 | CP.PCM.DIS ---
Provider - Provider Date of Admission: 04/03/18 12:51 Attending physician: Taiwo Love MD Time Spent in preparation of Discharge (in minutes): 30 Diagnosis - Discharge Diagnosis (1) Acute blood loss as cause of postoperative anemia Status: Acute (2) Osteoarthritis of right knee Status: Acute Hospital Course - Lab Results Lab Results: Most Recent Lab Values WBC 8.8 K/uL (4.8-10.8) 04/07/18 06:59 RBC 2.84 Mil/uL (3.80-5.20) L 04/07/18 06:59 Hgb 8.3 g/dL (11.0-16.0) L 04/07/18 06:59 Hct 23.9 % (34.0-47.0) L 04/07/18 06:59 MCV 84.1 fL (81.0-99.0) 04/07/18 06:59 MCH 29.2 pg (27.0-31.0) 04/07/18 06:59 MCHC 34.7 g/dL (33.0-37.0) 04/07/18 06:59 RDW 15.9 % (11.5-14.5) H 04/07/18 06:59 Plt Count 112 K/uL (130-400) L 04/07/18 06:59 MPV 9.5 fL (7.2-11.7) 04/07/18 06:59 Neut % (Auto) 69.9 % (50.0-75.0) 04/07/18 06:59 Lymph % (Auto) 16.0 % (20.0-40.0) L 04/07/18 06:59 [place] % (Auto) 11.4 % (0.0-10.0) H 04/07/18 06:59 Eos % (Auto) 2.0 % (0.0-4.0) 04/07/18 06:59 Baso % (Auto) 0.7 % (0.0-2.0) 04/07/18 06:59 Neut # (Auto) 6.1 K/uL (1.8-7.0) 04/07/18 06:59 Lymph # (Auto) 1.4 K/uL (1.0-4.3) 04/07/18 06:59 [place] # (Auto) 1.0 K/uL (0.0-0.8) H 04/07/18 06:59 Eos # (Auto) 0.2 K/uL (0.0-0.7) 04/07/18 06:59 Baso # (Auto) 0.1 K/uL (0.0-0.2) 04/07/18 06:59 PT 19.8 SECONDS (9.7-12.2) H 04/07/18 06:59 INR 1.8 04/07/18 06:59 Sodium 135 mmol/L (132-148) 04/07/18 06:59 Potassium 3.7 mmol/L (3.6-5.2) 04/07/18 06:59 Chloride 97 mmol/L (98-107) L 04/07/18 06:59 Carbon Dioxide 26 mmol/L (22-30) 04/07/18 06:59 Anion Gap 15 (10-20) 04/07/18 06:59 BUN 14 mg/dL (7-17) 04/07/18 06:59 Creatinine 0.7 mg/dL (0.7-1.2) 04/07/18 06:59 Est GFR ( Amer) > 60 04/07/18 06:59 Est GFR (Non-Af Amer) > 60 04/07/18 06:59 Random Glucose 98 mg/dL (65-105) 04/07/18 06:59 Hemoglobin A1c 5.5 % (4.2-6.5) 04/04/18 08:02 Calcium 7.9 mg/dl (8.6-10.4) L 04/07/18 06:59 Phosphorus 2.2 mg/dL (2.5-4.5) L 04/06/18 08:18 Magnesium 2.0 mg/dL (1.6-2.3) 04/06/18 08:18 Total Bilirubin 0.7 mg/dL (0.2-1.3) 04/06/18 08:18 AST 16 U/L (14-36) 04/06/18 08:18 ALT 28 U/L (9-52) 04/06/18 08:18 Alkaline Phosphatase 52 U/L (38-126) 04/06/18 08:18 Total Protein 5.6 g/dL (6.3-8.3) L 04/06/18 08:18 Albumin 3.1 g/dL (3.5-5.0) L 04/06/18 08:18 Globulin 2.5 gm/dL (2.2-3.9) 04/06/18 08:18 Albumin/Globulin Ratio 1.2 (1.0-2.1) 04/06/18 08:18 Triglycerides 84 mg/dL (0-149) 04/04/18 08:02 Cholesterol 108 mg/dL (0-199) 04/04/18 08:02 LDL Cholesterol Direct 54 mg/dL (0-129) 04/04/18 08:02 HDL Cholesterol 29 mg/dL (30-70) L 04/04/18 08:02 25-OH Vitamin D Total 19.9 NG/ML (30.0-100.0) L 04/04/18 08:02 Digoxin 0.8 ng/mL (0.8-2.0) 04/04/18 08:02 Blood Type O NEGATIVE 04/06/18 13:34 Antibody Screen Negative 04/06/18 13:34 - Hospital Course Hospital Course: 82 F with PMH: A.fib, CAD, HTN and Vitamin D deficiency with right knee osteoarthritis failed conservative management and elected for TKR. Postoperative imaging demonstrated acceptable position of prosthesis. Medical consultation was requested for post operative medical management. HTN and A. Fib controlled throughout admission. Patients post operative course was complicated by acute blood loss anemia, for which patient received PRBC transfusion of 1 unit on POD #3. Patient tolerated PT/OT well. Patient received VTE prophylaxis in the form of lovenox 40mg SQ Q24h for warfarin bridge as well as Warfarin 4.5mg daily and venodynes. PT was discharged to [facility] subacute rehab, and continued on home medications as well as the lovenox to bride Warfarin. Patient was WBAT RLE, ambulating with walker, and given instructions for daily dressing changes and to f/u Dr. Love within 2 weeks. Discharge Exam - Head Exam Head Exam: ATRAUMATIC, NORMAL INSPECTION, NORMOCEPHALIC - Respiratory Exam Respiratory Exam: NORMAL BREATHING PATTERN - Cardiovascular Exam Cardiovascular Exam: RRR - Extremities Exam Additional comments: Right knee: dressing changed. Incision clean and intact. No erythema. Thigh and calf soft and nontender. NVI distally Discharge Plan - Follow Up Plan Disposition: REHAB FACILITY/REHAB UNIT Instructions: Heart Healthy Diet, Total Knee Replacement (DC), Warfarin, Managing Pain After Surgery Referrals: Taiwo Love MD [Staff Provider] -
== END 2018-04-07 12:09 | DRG 470 ==
LOC: C.SDS 10:17 → C.9S 12:51 → C.6T 13:46
PROVIDERS: ADMIT Orthopaedic Surgery; ATTEND Orthopaedic Surgery
PROC: 0SRC0J9 Replacement of Right Knee Joint with Synthetic Substitute, Cemented, Open Approach (ICD-10-PCS; principal; 2018-04-03 13:00)
PROC: 30233N1 Transfusion of Nonautologous Red Blood Cells into Peripheral Vein, Percutaneous Approach (ICD-10-PCS; 2018-04-06)
DX: M17.11 Unilateral primary osteoarthritis, right knee (principal); D62 Acute posthemorrhagic anemia; M21.061 Valgus deformity, not elsewhere classified, right knee; E55.9 Vitamin D deficiency, unspecified; M81.0 Age-related osteoporosis without current pathological fracture; I10 Essential (primary) hypertension; I25.10 Atherosclerotic heart disease of native coronary artery without angina pectoris; I48.91 Unspecified atrial fibrillation; R79.1 Abnormal coagulation profile; E78.00 Pure hypercholesterolemia, unspecified; K59.00 Constipation, unspecified; Z79.01 Long term (current) use of anticoagulants; Z79.82 Long term (current) use of aspirin; Z79.899 Other long term (current) drug therapy; Z87.01 Personal history of pneumonia (recurrent); Z95.5 Presence of coronary angioplasty implant and graft